=== PATIENT | male | born 1970 | race African-American/Black ===

== ENCOUNTER 2022-08-31 13:23 | Emergency (ER) | payer MEDICAID, OTHER ==
[~2022-08-31] VITALS: Ht 185.4 cm; Wt 100.0 kg
[2022-08-31 14:06] LABS: BASOPHILS % 0.7 % (0.0-2.0); EOSINOPHILS % 1.4 % (0.0-5.0); HEMATOCRIT. 48.2 % (42.0-52.0); HEMOGLOBIN. 16.4 g/dL (14.0-18.0); LYMPHOCYTES % 26.2 % (20.0-50.0); MEAN CORPUSCULAR HEMOGLOBIN 29.4 pg (28.0-32.0); MEAN CORPUSCULAR VOLUME 86.3 fL (80.0-94.0); MEAN PLATELET VOLUME 8.1 fl (7.4-10.4); MONOCYTES % 7.6 % (2.0-8.0); NEUTROPHILS % 64.1 % (40.0-76.0); PLATELET 263 x1000/uL (130-400); RED BLOOD CELL COUNT 5.59 mill/uL (4.7-6.1)
[2022-08-31 14:10] LABS: CHLORIDE 102 mEq/L (98-107)
[2022-08-31 14:19] LABS: ETHANOL BLOOD < 10 mg/dL
[2022-08-31] MEDS ORDERED: DIPHENHYDRAMINE 50MG/ML VIAL IM ONE (17:00)
[2022-08-31] MEDS ORDERED: ALPRAZOLAM 0.5 MG TABLET PO ONE (18:15)
[2022-08-31] MEDS ORDERED: POTASSIUM CHLORIDE 20MEQ/PACKET PO NR (19:30)
[2022-09-01] MEDS ORDERED: ACETAMINOPHEN 325MG TABLET PO ONE (09:15)
[2022-09-01 09:42] VITALS: BP 137/94
== END 2022-09-01 09:53 | disposition home or self-care (01) ==
LOC: ER 13:31
DX: R44.0 Auditory hallucinations (principal); R45.851 Suicidal ideations; E11.9 Type 2 diabetes mellitus without complications
CPT/HCPCS: 36415; 80053; 80307; 80320; 80329; 82962; 85025; 96372; 99285; J1200; Z7610; G0480